=== PATIENT | female | born 1985 | race American Indian/Alaskan Native ===

== ENCOUNTER 2017-09-22 19:54 | Emergency (ER) | payer BC, MEDICAID, OTHER ==
[2017-09-22 19:54] VITALS: BMI 47.8
[2017-09-22 19:58] VITALS: BP 140/69; PULSE 112; RESP 16; TEMP 98.8; O2SAT 99
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
[2017-09-22] MEDS ORDERED: Lidocaine 2% w Epi 1:100,000 Inj IJ ONE (21:45)
[2017-09-22] MEDS ORDERED: Tdap Vaccine 0.5 ml Vial (10-64 yrs) IM ONE ×2 (21:57→22:02)
[2017-09-22] MEDS ORDERED: Lidocaine 1% w Epi 1:100,000 Inj IJ ONE (21:57)
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
== END 2017-09-22 22:47 | disposition home or self-care (01) ==
LOC: H.ER 19:54
DX: S02.2XXA Fracture of nasal bones, initial encounter for closed fracture (principal); Y04.0XXA Assault by unarmed brawl or fight, initial encounter; S01.81XA Laceration without foreign body of other part of head, initial encounter; Z23 Encounter for immunization

== ENCOUNTER 2017-11-07 11:52 | Emergency (ER) | payer BC ==
[2017-11-07 11:52] VITALS: BMI 47.8
[2017-11-07 12:14] VITALS: RESP 16; O2SAT 97
--- NOTE | 2017-11-07 12:35 | ED PDOC ---
HPI: Abdomen Time Seen by Provider: 11/07/17 12:22 Chief Complaint (Nursing): Abdominal Pain Chief Complaint (Provider): Abdominal Pain History Per: Patient History/Exam Limitations: no limitations Onset/Duration Of Symptoms: Days (x2 days) Current Symptoms Are (Timing): Still Present Location Of Pain/Discomfort: LLQ Quality Of Discomfort: Other (constant) Associated Symptoms: denies: Fever, Vomiting, Diarrhea, Urinary Symptoms Additional Complaint(s): 32 y/o female presents to the ED complaining of left lower quadrant pain x 2 days. Reports that pain is constant and feels lke it involves the whole left side. Pain is not affected by eating. States taking test at home twice , and result was negative both times. Denies history of ovarian cyst. Denies dysuria, hematuria, diarrhea, vomiting, fever, any association with food or any further medical complaints. PMD: Yohannes Pandya MD Past Medical History Reviewed: Historical Data, Nursing Documentation, Vital Signs Vital Signs: Last Vital Signs Temp 98 F 11/07/17 12:12 Pulse 97 H 11/07/17 12:12 Resp 16 11/07/17 12:12 BP 114/72 11/07/17 12:12 Pulse Ox 97 11/07/17 14:29 - Medical History PMH: No Chronic Diseases - Surgical History Surgical History: No Surg Hx - Family History Family History: States: Unknown Family Hx - Social History Current smoker - smoking cessation education provided: No Alcohol: None Drugs: Denies - Home Medications Home Medications: Ambulatory Orders Medication Instructions Recorded Acetaminophen with Codeine 1 tab PO Q8H #10 tab 12/07/14 [Tylenol with Codeine No. 3 300 mg-30 mg] Nitrofurantoin Macrocrystals 100 mg PO BID #20 cap 12/07/14 [Macrobid] Vit#96/Ferrous Fum/FA 1 tab PO DAILY 12/07/14 [] oxyCODONE/Acetaminophen [Percocet 1 tab PO Q4 PRN #20 tab 01/07/15 5/325 mg Tab] Nitrofurantoin Macrocrystals 100 mg PO BID 10 Days cap 05/13/15 [Macrobid] Cyclobenzaprine [Cyclobenzaprine 10 mg PO Q8 PRN #9 tab 09/23/15 HCl] Ibuprofen 600 mg PO Q6 PRN #20 tablet 09/23/15 Naproxen 500 mg PO BID PRN #30 tablet 11/12/15 Polyethylene Glycol 3350 [Miralax] 17 gm PO DAILY 5 Days 11/12/15 Amoxicillin/Clavulanate [Augmentin 1 tab PO BID #14 tab 09/22/17 875 MG-125 MG] Pseudoephedrine [Sudafed Tab] 60 mg PO Q8 PRN #24 tab 09/22/17 Ibuprofen [Motrin] 600 mg PO Q8 PRN #21 tab 11/07/17 - Allergies Allergies/Adverse Reactions: Allergies Allergy/AdvReac Type Severity Reaction Status Date / Time No Known Allergies Allergy Verified 11/07/17 12:12 Review of Systems ROS Statement: Except As Marked, All Systems Reviewed And Found Negative (As per HPI, otherwise negative) Constitutional: Negative for: Fever Gastrointestinal: Positive for: Abdominal Pain (Left lower quadrant pain). Negative for: Vomiting, Diarrhea Genitourinary Female: Negative for: Dysuria, Hematuria Physical Exam - Reviewed Nursing Documentation Reviewed: Yes Vital Signs Reviewed: Yes - Physical Exam Appears: Positive for: Non-toxic, No Acute Distress Head Exam: Positive for: ATRAUMATIC, NORMAL INSPECTION, NORMOCEPHALIC Skin: Positive for: Normal Color, Warm, Dry Eye Exam: Positive for: Normal appearance ENT: Positive for: Normal ENT Inspection Neck: Positive for: Normal Cardiovascular/Chest: Positive for: Regular Rate, Rhythm. Negative for: Murmur Respiratory: Positive for: Normal Breath Sounds. Negative for: Accessory Muscle Use, Respiratory Distress Gastrointestinal/Abdominal: Positive for: Other (Left lower flank and left lower quadrant pain) Pelvic Exam: Positive for: External Exam Normal (Normal ervix), Discharge ( Minimal vaginal discharge) Back: Positive for: Normal Inspection Extremity: Positive for: Normal ROM. Negative for: Deformity Neurologic/Psych: Positive for: Alert, Oriented - Laboratory Results Result Diagrams: 11/07/17 12:35 11/07/17 12:35 - ECG O2 Sat by Pulse Oximetry: 97 (RA) Pulse Ox Interpretation: Normal - Progress ED Course And Treament: IMPRESSION: Unremarkable pelvic ultrasound. abdomen/pelvis IMPRESSION: Epiploic appendagitis. Mild hepatomegaly. No other significant abnormality. Medical Decision Making Medical Decision Making: Time: 12:22 Initial Impression: ovarian cyst, pylonephritis Plan: BMP Lipase Liver profile Urine dipstick Urine CBC w/ differential Chlamydia/GC, RNA, TMA Urine culture Urinalysis Transvaginal US Reevaluation Scribe Attestation: Documented by Jim Waite acting as a scribe for Felipe Waite MD. Scribe Attestation: All medical record entries made by the Scribe were at my direction and personally dictated by me. I have reviewed the chart and agree that the record accurately reflects my personal performance of the history, physical exam, medical decision making, and the department course for this patient. I have also personally directed, reviewed, and agree with the discharge instructions and disposition. Disposition - Clinical Impression Clinical Impression: Epiploic appendagitis - Patient ED Disposition Is Patient to be Admitted: No - Disposition Referrals: Jr Lorenzo MD [Medical Doctor] - Disposition: Routine/Home Disposition Time: 16:59 Condition: FAIR Prescriptions: Ibuprofen [Motrin] 600 mg PO Q8 PRN #21 tab PRN Reason: Pain, Moderate (4-7) Instructions: Acute Abdomen (Belly Pain), Adult (DC) Forms: [employer] (Kinyarwanda), [facility] ED School/Work Excuse
[2017-11-07 12:42] LABS: BASO # 0.1 K/uL (0.0-0.2); BASO % 0.9 % (0.0-2.0); EOS # 0.1 K/uL (0.0-0.7); EOS % 1.9 % (0.0-4.0); HEMOGLOBIN 13.7 g/dL (12.0-16.0); LYMPH # 2.3 K/uL (1.0-4.3); LYMPH % 29.8 % (20.0-40.0); MEAN CELL VOLUME 84.7 fl (81.0-99.0); MEAN CORPUSCULAR HEMOGLOBIN 28.9 pg (27.0-31.0); MEAN CORPUSCULAR HGB CONC 34.1 g/dL (33.0-37.0); MEAN PLATELET VOLUME 9.1 fl (7.2-11.7); MONO # 0.7 K/uL (0.0-0.8); NEUT # 4.4 K/uL (1.8-7.0); NEUT % 58.4 % (50.0-75.0); RBC 4.74 Mil/uL (3.80-5.20); RED CELL DISTRIBUTION WIDTH 13.4 % (11.5-14.5); WHITE BLOOD COUNT 7.6 K/uL (4.8-10.8)
[2017-11-07 12:47] LABS: SQUAMOUS EPITHIAL 10 /hpf (0-5); URINE AMORPHOUS SEDIMENT RARE /ul (<OCC); URINE BACTERIA RARE (<OCC); URINE BILIRUBIN NEGATIVE (NEGATIVE); URINE BLOOD SMALL (NEGATIVE); URINE CLARITY CLOUDY (Clear); URINE COLOR YELLOW (YELLOW); URINE GLUCOSE (UA) NEG (Normal); URINE LEUKOCYTE ESTERASE TRACE Leu/uL (Negative); URINE PROTEIN NEGATIVE (NEGATIVE); URINE UROBILINOGEN 0.2-1.0 mg/dL (0.2-1.0)
[2017-11-07 12:55] LABS: BLOOD UREA NITROGEN 13 mg/dl (7-17); CALCIUM 9.3 mg/dL (8.4-10.2); GFR AFRICAN-AMERICAN > 60; GFR NON-AFRICAN AMERICAN > 60
[2017-11-07 13:18] LABS: ALB/GLOB RATIO 0.9 (1.0-2.1); ALBUMIN 3.7 g/dL (3.5-5.0); BILIRUBIN,DIRECT 0.4 mg/ml (0.0-0.4)
--- NOTE | 2017-11-07 14:25 | US ---
HISTORY: LEFT ADNEXAL TENDERNESS COMPARISON: None available. TECHNIQUE: Transabdominal and transvaginal FINDINGS: UTERUS: Measures 9.3 x 5.0 x 6.0 cm. Normal in size and appearance. No fibroid or other mass lesion seen. ENDOMETRIUM: Measures 6 mm in diameter. Unremarkable. CERVIX: No cervical abnormality identified. RIGHT OVARY: Measures 2.5 x 1.7 x 1.7 cm. No solid mass. Normal flow. LEFT OVARY: Measures 3.2 x 2.5 x 3.0 cm. No solid mass. Normal flow. FREE FLUID: No significant free fluid noted. OTHER FINDINGS: None. IMPRESSION: Unremarkable pelvic ultrasound.
[2017-11-07] MEDS ORDERED: Iohexol 300 100 ML IJ ONE (14:40)
[2017-11-07] MEDS ORDERED: Sodium Chloride 0.9% 0 ML IV ONE (14:40)
--- NOTE | 2017-11-07 16:46 | CT ---
PROCEDURE: CT Abdomen and Pelvis without intravenous contrast HISTORY: EVALUATE FOR DIVERTICULITIS LLQ PAIN COMPARISON: 11/12/2015 TECHNIQUE: Without contrast.. Contrast dose: 0 Radiation dose: Total exam DLP = 1073.60 mGy-cm. This CT exam was performed using one or more of the following dose reduction techniques: Automated exposure control, adjustment of the mA and/or kV according to patient size, and/or use of iterative reconstruction technique. FINDINGS: LOWER THORAX: Unremarkable. LIVER: Hepatomegaly. Smooth contour. No mass. Normal attenuation. No intrahepatic biliary ductal dilatation. GALLBLADDER AND BILE DUCTS: Unremarkable. PANCREAS: Unremarkable. No gross lesion or ductal dilatation. SPLEEN: Unremarkable. ADRENALS: Unremarkable. No mass. KIDNEYS AND URETERS: Unremarkable. No hydronephrosis. No solid mass. VASCULATURE: Unremarkable. No aortic aneurysm. BOWEL: Findings consistent with epiploic appendagitis of the distal descending colon. Thin high density ring-like structure along the anterior lateral border of the descending colon with central high attenuation. Surrounding inflammatory change. No evidence of diverticulitis. No bowel obstruction. No abscess APPENDIX: Unremarkable. Normal appendix. PERITONEUM: Unremarkable. No free fluid. No free air. LYMPH NODES: Unremarkable. No enlarged lymph nodes. BLADDER: Nondistended REPRODUCTIVE: Unremarkable uterus BONES: No acute fracture. OTHER FINDINGS: None. IMPRESSION: Epiploic appendagitis. Mild hepatomegaly. No other significant abnormality.
[2017-11-07 17:03] VITALS: BP 130/85; PULSE 75; TEMP 98.1
== END 2017-11-07 17:38 | disposition home or self-care (01) ==
LOC: H.ER 11:52
DX: K63.89 Other specified diseases of intestine (principal); N83.209 Unspecified ovarian cyst, unspecified side